=== PATIENT | female | born 1950 | race Caucasian/White ===

== ENCOUNTER 2021-02-27 16:15 | Inpatient (IN) | payer MEDICARE, BC ==
[~2021-02-27] VITALS: Ht 175.3 cm; Wt 139.2 kg
[2021-02-27] MEDS ORDERED: METOPROLOL SUC100 MG PO (16:50)
[2021-02-27] MEDS ORDERED: FELODIPINE ER10 MG PO (16:51)
[2021-02-27] MEDS ORDERED: OMEPRAZOLE20 MG PO (16:51)
[2021-02-27] MEDS ORDERED: ATORVASTATIN CA40 MG PO (16:51)
[2021-02-27] MEDS ORDERED: LISINOPRIL40 MG PO (16:52)
[2021-02-27] MEDS ORDERED: LEVOTHYROXINE75 MCG PO (16:52)
[2021-02-27] MEDS ORDERED: GLIMEPIRIDE4 MG PO (16:52)
[2021-02-27] MEDS ORDERED: HYDROCHLOROTHIA25 MG PO (16:53)
[2021-02-27] MEDS ORDERED: MAGNESIUM400 M1 PO (16:54)
[2021-02-27] MEDS ORDERED: FISH OIL PO (16:54)
[2021-02-27] MEDS ORDERED: GABAPENTIN300 MG PO (16:54)
--- NOTE | 2021-02-27 21:46 | NUR ---
PT ARRIVES TO THE FLOOR VIA STRETCHER WITH PRESENT. ADMISSION PROCESS COMPLETE. PT ORIENTED TO ROOM, POC FOR THIS SHIFT, CALL LIGHT USE. PT AND DENY QUESTIONS. JELLO AND BROTH PROVIDED. FURTHER NEEDS DENIED AT THIS TIME. CALL LIGHT IN REACH.
--- NOTE | 2021-02-27 22:14 | NUR ---
ADMISSION ASSESSMENT COMPLETE. PT ALERT AND ORIENTED X 4. SPOUSE AT BEDSIDE. PT REPORTS PAIN IS TOLERABLE 3/10. DOES REPORT INTERMITTENT NAUSEA. DENIES PRN FOR N/V OR PAIN AT THIS TIME. IVF INFUSING WNL. CLEAR LIQUIDS AT BEDSIDE. PT DENIES QUESTIONS OR CONCERNS AT THIS TIME. CALL LIGHT IN REACH.
--- NOTE | 2021-02-28 00:10 | NUR ---
IN TO ROUND ON PT. PT REPORTS NAUSEA AND ABD PAIN. PRN FOR N/V AND PAIN ADMINISTERED PER EMAR. SBA TO BR TO VOID. GAIT STEADY. BACK TO BED, STACIE WELL. COOL WASHCLOTH PROVIDED. PT NPO AT THIS TIME AND VERBALIZES UNDERSTANDING OF NPO STATUS. DENIES FURTHER NEEDS. CALL LIGHT IN REACH.
--- NOTE | 2021-02-28 02:31 | NUR ---
CALL LIGHT ANSWERED. PT UP TO BR WITH SBA TO VOID. GAIT STEADY. BACK TO BED, STACIE WELL. REPORTS PAIN AND NAUSEA ARE TOLERABLE AT THIS TIME. DENIES PRN FOR PAIN OR N/V. NO FURTHER NEEDS. CALL LIGHT IN REACH.
--- NOTE | 2021-02-28 02:50 | NUR ---
BLOOD PRESSURE REASSESSED PER PT REQUEST. PT REPORTS ABD PAIN 01/21. IV PRN FOR PAIN ADMINISTERED ORDERED. PT REPORTS MILD NAUSEA WITH PRN ADMINISTRATION THAT QUICKLY PASSESS. COOL WASHCLOTH PROVIDED. HOB ELEVATED. PT WITHOUT FURTHER NEEDS. CALL LIGHT IN REACH.
--- NOTE | 2021-02-28 05:21 | NUR ---
CALL LIGHT ANSWERED. PT UP TO BR SBA TO VOID. GAIT STEADY. BACK TO BED, STACIE WELL. REPORTS PAIN IS "CLIMBING UP THERE". PRN FOR PAIN ADMINISTERED PER EMAR.
--- NOTE | 2021-02-28 07:01 | NUR ---
PT UP TO BR WITH SBA TO VOID. SURGICAL WIPE DOWN COMPLETE. CLEAN LINENS AND GOWN PROVIDED. BACK TO BED, STACIE FAIR. PT REPORTS INCREASED PAIN WITH ACTIVITY. IV PRN FOR PAIN ADMINISTERED DILUTED IN 20 ML NS AND INFUSED OVER THREE MINUTES. PT DENIES NAUSEA. NO FURTHER NEEDS AT THIS TIME. CALL LIGHT IN REACH.
--- NOTE | 2021-02-28 07:51 | CONS ---
[facility] [address], [place] [address] Signed DATE OF CONSULTATION: 02/28/2021 CHIEF COMPLAINT: Right lower quadrant abdominal pain. HISTORY OF PRESENT ILLNESS: Frida is a 70-year-old obese diabetic female, who presents with right lower quadrant abdominal pain. It started around 11:00 am. She had nausea. She came to emergency room for evaluation. In the emergency room, she was tender in the right lower quadrant. White count was elevated. CT scan confirmed her appendicitis. She has been admitted overnight, started on IV fluids and antibiotics. She has done well overnight. PAST MEDICAL HISTORY: 1. Diverticulosis. 2. Hypertension. 3. Diabetes. 4. Pinched nerve in her neck. 5. Cholelithiasis. 6. Obesity. PAST SURGICAL HISTORY: Includes left shoulder surgery without metal, full hysterectomy, bilateral total knee replacements, L4, L5 surgery with metal and ventral hernia repair with mesh with Dr. Amanda. SOCIAL HISTORY: She does not smoke or drink. She is to [place] at [phone]. She has 4 children. She is retired from our local [employer]. Dr. Laurie Geller is her primary care provider. FAMILY HISTORY: She told me there are no major issues in the family. REVIEW OF SYSTEMS: She had 10 systems reviewed and the pertinent positives are included in the above. ALLERGIES: None. MEDICATIONS: 1. Metoprolol 150 mg p.o. daily. 2. Lisinopril 40 mg p.o. daily. 3. Atorvastatin. Electronically Signed By: AYLA JOSE MD 02/28/21 0751 PATIENT NAME: YOLANDA VALVERDE CONSULTATION DATE OF : 52 REPORT #: [id number] PHYSICIAN: AYLA JOSE MD PCP: LAURIE GELLER MD REPORT IS CONFIDENTIAL AND NOT TO BE RELEASED WITHOUT AUTHORIZATION [facility] [address] [place] [id number] Signed 4. Levothyroxine. 5. Felodipine 10 mg p.o. daily. 6. Hydrochlorothiazide. 7. Gabapentin. 8. Omeprazole. 9. Magnesium oxide. 10. Fish oil. 11. Glimepiride. PHYSICAL EXAMINATION: VITAL SIGNS: Blood pressure is 162/54, heart rate 56, respiratory rate 18, temperature is 98.2. She is 98% on room air. She is 5 feet 9 inches at 132 kg. GENERAL: Frida is a 70-year-old female lying supine in her hospital bed. She does not appear systemically ill or toxic. She is very pleasant and a good historian. LUNGS: Clear to auscultation bilaterally. HEART: Regular rate and rhythm. ABDOMEN: Obese, but soft, tender in the right lower quadrant. She has a previous lower midline infraumbilical incision. LABORATORY DATA: Her white blood count 13.8, hemoglobin 13, neutrophils 84. Electrolytes unremarkable. COVID negative. Liver function tests negative. Albumin is 4.2. Urinalysis showed some glucose. RADIOGRAPHIC STUDIES: CT scan of the abdomen and pelvis is reviewed. Unfortunately, we cannot see the actual images due to the computer this morning, but the report is reviewed and she has an appendix measuring 18 mm with mild inflammatory changes, no abscess. ASSESSMENT AND PLAN: Frida is a 70-year-old obese diabetic female, who presents with acute appendicitis. I gave her a brochure on appendicitis. We have reviewed the location and function of the appendix. We have reviewed laparoscopic versus open appendectomy. We will see how that goes given the fact she has mesh from a previous hysterectomy incision. She understands there is risk of surgery including, but not limited to bleeding, infection, scarring, change in contour of the skin, damage to bowel, appendiceal stump leak, postoperative intra-abdominal abscess, incisional hernias and other unforeseen comorbidities. She understands expected intraop and postop course. She has expressed understanding and would like to proceed. Ayla Jose MD Electronically Signed By: AYLA JOSE MD 02/28/21 0751 PATIENT NAME: YOLANDA VALVERDE CONSULTATION DATE OF : 52 REPORT #: [id number] PHYSICIAN: AYLA JOSE MD PCP: LAURIE GELLER MD REPORT IS CONFIDENTIAL AND NOT TO BE RELEASED WITHOUT AUTHORIZATION [facility] [address] [place] [address] Signed STONE/TARAHL /[id number] cc: MD Laurie Mcconnell MD Copies: AYLA JOSE MD, KEVIN R MD ~ Electronically Signed By: AYLA JOSE MD 02/28/21 0751 PATIENT NAME: YOLANDA VALVERDE CONSULTATION DATE OF : 52 REPORT #: [id number] PHYSICIAN: AYLA JOSE MD PCP: LAURIE GELLER MD REPORT IS CONFIDENTIAL AND NOT TO BE RELEASED WITHOUT AUTHORIZATION
--- NOTE | 2021-02-28 09:13 | NUR ---
Patient left unit for surgery.
--- NOTE | 2021-02-28 11:05 | NUR ---
02/28/21 1105 Meenakshi Herrera 1059- PT ARRIVES TO PACU NONAROUSABLE TO NOXIOUS STIMULI WITH AN OPA IN PLACE. PT OBSTRUCTING. JAW THRUST PERFORMED AND THIS CLEARS THE AIRWAY. RESP EVEN AND UNLABORED. OXYGEN SAT LOW 90'S ON 10L VIA MASK. 1103- CBG [id number]
--- NOTE | 2021-02-28 11:37 | NUR ---
THIS MORNING BEFORE PATIENT WENT TO SURGERY THIS MORNING SHE WASHED HER FACE AND BRUSHED HER TEETH AND USED THE MOUTH WASH. SHE SAID THANK YOU.
--- NOTE | 2021-02-28 11:57 | NUR ---
Patient back to floor from surgery. Patient awake, alert and oriented x4. Patient reports her pain has improved and no nausea. Vital signs stable, afebrile. Patient's at bedside. Patient has no current needs. Lunch ordered.
--- NOTE | 2021-02-28 12:32 | NUR ---
STATES PAIN IS MINIMAL AT THIS TIME. VITALS WNL. LAP SITES CLEAN, DRY AND INTACT.
--- NOTE | 2021-02-28 12:50 | OR ---
[facility] [address] [place], [place] [address] Signed DATE OF OPERATION: 02/28/2021 SURGEON: Ayla Jose MD PREOPERATIVE DIAGNOSIS: Acute appendicitis. POSTOPERATIVE DIAGNOSIS: Acute suppurative necrotic appendicitis. PROCEDURE: Laparoscopic appendectomy (prolonged and difficult at 1 hour and 20 minutes). ESTIMATED BLOOD LOSS: None. FINDINGS: Yolanda had suppurative necrotic appendix. It was adherent posteriorly and had to be very carefully and slowly removed from the retroperitoneum. Because of previous abdominal surgery, we could not move the small bowel out of the way and we had to place gauze to keep the small bowel away from our cautery during the dissection. It was a very difficult dissection and took more than double the length of time of a usual appendectomy. In this way, her procedure was prolonged and difficult. INDICATIONS: Frida is a 70-year-old obese diabetic female, who developed right lower quadrant abdominal pain in the morning. She had come to the emergency room. She had nausea and anorexia. She was tender in the right lower quadrant with an elevated white blood cell count. CT scan of the abdomen and pelvis showed her thickened appendix at 18 mm in diameter. There was mild periappendiceal inflammation. I had been asked to admit her overnight as a general surgeon on-call. She had received antibiotics and IV fluids and pain control. I met with Lucita this morning. We reviewed the above findings in detail. She understands the location of function of the appendix. We had discussed laparoscopic versus open appendectomy. She has a previous lower midline infraumbilical incision for her hysterectomy. She had a hernia repaired with mesh previously. We also reviewed the expected intraop and postop course. There is risk including, but not limited to bleeding, infection, scarring, change in contour of the skin, damage to bowel, appendiceal stump leak, postoperative intraabdominal abscess, incisional hernias and other unforeseen comorbidities. She had expressed understanding and wished to proceed. Electronically Signed By: AYLA JOSE MD 02/28/21 1250 PATIENT NAME: YOLANDA VALVERDE OPERATIVE REPORT DATE OF : 52 REPORT #: [id number] PHYSICIAN: AYLA JOSE MD PCP: LAURIE FRANKEL MD REPORT IS CONFIDENTIAL AND NOT TO BE RELEASED WITHOUT AUTHORIZATION [facility] [address] [place], [place] [address] Signed PROCEDURE NOTE: Frida was taken in the operating room and placed in supine position under general endotracheal tube anesthesia. A Grady catheter was inserted with return of clear yellow urine. She was on preoperative antibiotics and SCDs were utilized. She was prepped and draped in usual sterile fashion. All trocars were placed in usual positions under direct visualization of camera without difficulty. We placed our initial trocar above the umbilicus in the midline and above the previous hernia repair. Sure enough, she had omentum and bowel adherent to the previous midline below the umbilicus. We were able to place our suprapubic port under direct visualization just below this area. We had taken multiple pictures throughout for photodocumentation. We found that the proximal 1/3rd and midportion of the appendix was adherent to the retroperitoneum. It took a few minutes to free that up enough that we could separate the base of the appendix from the cecum. We used a linear stapler to divide the appendix from the base of the cecum. There was good hemostasis. Because of the inflammatory changes in the mesoappendix, we could never get that to come up completely. We had to place gauze into the abdomen and push the small bowel away from the area we are dissecting because of the previous adhesions to her lower midline. We then very slowly and carefully cauterized the mesoappendix right along the edge of the appendix itself. We did encounter appendiceal artery, and we cauterized that very slowly and thoroughly. Again, we kept the retroperitoneum under direct visualization and kept in the surgical plane. Eventually, we had the appendix free. We placed the appendix into an EndoCatch bag. We removed the gauze through our trocar site. The appendix had been removed with the help of the EndoCatch bag. We used our laparoscopic suturing device to pass 0-Vicryl suture on either side of the right subcostal trocar site. Two stitches were then placed in this area. We then closed the fascia of the supraumbilical midline trocar site with interrupted [id number] and simple 0-Vicryl sutures. Local anesthetic was injected into all trocar sites. The skin and dermis of each trocar site were closed with interrupted 3-0 subcuticular Monocryl sutures. We did use 5-0 fast absorbing plain gut suture to close the skin on the suprapubic site. After this, dry gauze and tape were applied. Her Grady catheter was removed without difficulty. She was awakened from anesthesia, extubated in the OR, and taken to the recovery room in stable condition. Ayla Jose MD ALB/MODL /[id number] Electronically Signed By: AYLA JOSE MD 02/28/21 1250 PATIENT NAME: YOLANDA VALVERDE OPERATIVE REPORT DATE OF : 52 REPORT #: [id number] PHYSICIAN: AYLA JOSE MD PCP: LAURIE FRANKEL MD REPORT IS CONFIDENTIAL AND NOT TO BE RELEASED WITHOUT AUTHORIZATION [facility] [address] [place], [place] [address] Signed cc: MD Ayla Martínez MD Copies: LAURIE FRANKEL MD, ANDREW L MD ~ Electronically Signed By: AYLA JOSE MD 02/28/21 1250 PATIENT NAME: YOLANDA VALVERDE OPERATIVE REPORT DATE OF : 52 REPORT #: [id number] PHYSICIAN: AYLA JOSE MD PCP: LAURIE FRANKEL MD REPORT IS CONFIDENTIAL AND NOT TO BE RELEASED WITHOUT AUTHORIZATION
--- NOTE | 2021-02-28 12:59 | NUR ---
Patient sitting up eating lunch; a&ox4. Patient reports she is doing well at this time with minimal abd pain. Patient denies nausea. remains at bedside. Abdominal x3 lap sites are unchanged; covered/CDI. Patient has no needs. Personal supplies and call light within reach.
--- NOTE | 2021-02-28 13:43 | NUR ---
Continues to deny pain at this time. Vitals WNL. IV fluids infusing. Lap site dressings remain clean, dry and intact.
--- NOTE | 2021-02-28 13:54 | NUR ---
Patient continuing to do well, a&ox4. Patient denies pain at this time. Vital signs are stable. Abd incisions are unchanged; covered lap sites x3-CDI. Patient has no current needs. Personal supplies and call light within reach.
--- NOTE | 2021-02-28 15:16 | NUR ---
SHE CALLED SHE NEEDED TO USE THE BATHROOM. SO I UNHOOKED HER SCDS AND UNPLUGED THE IV FROM THE WALL. HER IS IN THE ROOM. SHE ALSO WANTED A CUP OF ICE WATER AND A CUP OF ICE SO I WENT AND GOT THAT FOR HER. PATIENT BACK IN BED.
--- NOTE | 2021-02-28 16:12 | NUR ---
New order obtained from Dr. King for continuous lactated ringers @85 ml/hr.
--- NOTE | 2021-02-28 16:26 | NUR ---
[place] 10/325mg po admin for reports of 6/10 abd pain.
--- NOTE | 2021-02-28 19:15 | NUR ---
REPORT RECEIVED FROM DAY SHIFT RN. PT LYING IN BED ALERT AND ORIENTED. DENIES NEEDS AT THIS TIME. CALL LIGHT IN REACH. WHITE BOARD UPDATED.
--- NOTE | 2021-02-28 20:37 | NUR ---
COLOR DIPPER ROUNDING NOTE. PT RESTING IN BED, AT BEDSIDE. QUESTIONS, CONCERNS, NEEDS DENIED AT THIS TIME. CALL LIGHT IN REACH. WHITEBOARD UPDATED.
--- NOTE | 2021-02-28 20:40 | NUR ---
EVENING ASSESSMENT COMPLETE. SCHEDULED MEDS ADMNISTERED PER EMAR. PRN ADMINISTERED FOR 6/10 ABD PAIN. LAP SITES X 3 COVERED WITH GAUZE. SCANT AMOUNT SEROSANG DRAINAGE. BT ACTIVE. ABD SOFT AND NON DISTENDED. UP TO BR WITH SBA TO VOID. GAIT STEADY. BACK TO BED, STACIE WELL. FRESH ICE TO INCISIONS. SCD'S IN PLACE. PT DENIES QUESTIONS OR CONCERNS. CALL LIGHT IN REACH.
--- NOTE | 2021-02-28 22:15 | NUR ---
CALL LIGHT ANSWERED. 1 SBA TO THE BATHROOM AND BACK TO BED. ICE WATER REFILLED. PAIN MEDS REQUESTED AND PRIMARY RN NOTIFIED.
--- NOTE | 2021-02-28 22:30 | NUR ---
IV ABX INFUSING WNL ORDERED. PRN ADMINISTERED FOR 6/10 ABD PAIN. PT DENIES FURTHER NEEDS. CALL LIGHT IN REACH.
--- NOTE | 2021-03-01 00:21 | NUR ---
PT REPORTS SHE IS RESTING WELL. PAIN IS TOLERABLE. FRESH ICE FOR INCISIONS. CPOX IN PLACE. SpO2 94% ON RA. HR 50'S.
--- NOTE | 2021-03-01 02:40 | NUR ---
PT UP TO BR WITH SBA TO VOID. GAIT STEADY. BACK TO BED, STACIE WELL. SCD'S AND CPOX IN PLACE. SpO2 95% ON RA. HR 60'S. SCHEDULED BP MEDS ADMINISTERED PER EMAR. PRN FOR PAIN ADMINISTERED FOR 01/21 ABD PAIN. IV ABX INFUSING WNL. FRESH WATER AND ICE FOR ABD PROVIDED. PT DENIES FURTHER NEEDS. CALL LIGHT IN REACH.
--- NOTE | 2021-03-01 05:45 | NUR ---
PT UP TO BR WITH SBA TO VOID. GAIT STEADY. BACK TO BED, STACIE WELL. VS AND I&O COMPLETE. PT REPORTS PAIN IS TOLERABLE AT THIS TIME. DENIES NAUSEA. IVF INFUSING WNL. FRESH ICE PACK TO INCISION. NO FURTHER NEEDS. CALL LIGHT IN REACH.
--- NOTE | 2021-03-01 06:43 | DS ---
[facility] [address] [place], [place] [address] Signed ADMISSION DATE: 02/27/2021 DISCHARGE DATE: 03/01/2021 FINAL DIAGNOSIS: Suppurative necrotic appendicitis. PROCEDURE: Laparoscopic appendectomy. HISTORY OF PRESENT ILLNESS: Frida is a 70-year-old obese diabetic female, who presented with one day of right lower quadrant abdominal pain, nausea and anorexia. She came to the emergency room. She was tender in the right lower quadrant with an elevated white blood cell count. The CT scan showed the dilated appendix at 18 mm with mild periappendiceal inflammation. HOSPITAL COURSE: Lucita was admitted as above and started on Rocephin and Flagyl. She was taken to the operating room that same morning and underwent a prolonged and difficult laparoscopic appendectomy. Her appendix was adherent to the retroperitoneum and it took extra time to get the appendix out. She did very well postoperatively. When she woke up in the recovery room, she felt great. She has been eating and tolerating diet quite nicely. Her pain is controlled with hydrocodone. She cannot take oxycodone. She will not take NSAIDs because of her diabetes. She knows she can supplement with Tylenol. This morning, she asked if she could go home. DISCHARGE PLANS AND MEDICATIONS: Frida will be discharged to home with a prescription for [place] 10/325 one tablet p.o. q.6 hours p.r.n. for severe postoperative pain. Dispense 30 tablets with no refills. She could supplement with [id number] Tylenol. She avoids NSAIDs because of her diabetes. She will resume all her chronic medications. We will give her Levaquin 500 mg p.o. daily for three days. She also has Flagyl 500 mg p.o. t.i.d. for three days. I will see her back in my office in the next week or two for followup. In the meantime, she can perform her activities of daily living including walking up and down stairs and showering and bathing as usual. She should not do any heavy pushing, pulling, or lifting over about 20 pounds. She has expressed understanding and agrees with the above plan. Ayla Jose MD Electronically Signed By: AYLA JOSE MD 03/01/21 0643 PATIENT NAME: YOLANDA VALVERDE DISCHARGE SUMMARY DATE OF : 52 REPORT #: [id number] PHYSICIAN: AYLA JOSE MD PCP: LAURIE FRANKEL MD REPORT IS CONFIDENTIAL AND NOT TO BE RELEASED WITHOUT AUTHORIZATION [facility] [address] [place] [address] Signed ALB/MODL /[id number] cc: MD Laurie Mcconnell MD Copies: AYLA JOSE MD, KEVIN R MD ~ Electronically Signed By: AYLA JOSE MD 03/01/21 0643 PATIENT NAME: YOLANDA VALVERDE DISCHARGE SUMMARY DATE OF : 52 REPORT #: [id number] PHYSICIAN: AYLA JOSE MD PCP: LAURIE FRANKEL MD REPORT IS CONFIDENTIAL AND NOT TO BE RELEASED WITHOUT AUTHORIZATION
--- NOTE | 2021-03-01 07:29 | EKG ---
[facility] [address] [facility] [place], [place] [address] Signed Normal sinus rhythm Normal ECG No previous ECGs available Confirmed by FAVIAN LAIRD MD ([id number]) on 03/01/2021 7:29:29 AM Electronically Signed By: FAVIAN LAIRD MD 03/01/21 0729 PATIENT NAME: YOLANDA VALVERDE Electrocardiogram DATE OF : 52 PHYSICIAN: FAVIAN LAIRD MD REPORT #: [id number] REPORT IS CONFIDENTIAL AND NOT TO BE RELEASED WITHOUT AUTHORIZATION
--- NOTE | 2021-03-01 07:30 | NUR ---
Patient awake, a&ox4. Patient reports minimal incisional pain. Breakfast ordered. No current needs. Personal supplies and call light within reach.
[2021-03-01] MEDS ORDERED: HYDROCODON-ACE1 EAC8 PO (07:41)
[2021-03-01] MEDS ORDERED: TYLENOL EXTRA500 MG PO (07:42)
[2021-03-01] MEDS ORDERED: LEVOFLOXACIN500 MG PO (07:43)
[2021-03-01] MEDS ORDERED: FLAGYL500 MG PO (07:44)
--- NOTE | 2021-03-01 09:03 | NUR ---
MED REC COMPLETE
--- NOTE | 2021-03-01 09:09 | NUR ---
Admin two tabs [place] 10/325mg po.
== END 2021-03-01 10:35 | disposition home or self-care (01) | DRG 342 ==
LOC: ED 16:15 → MS 16:16 → ED 16:16 → MS 02-28 06:37
PROVIDERS: ADMIT Colon & Rectal Surgery; ATTEND Colon & Rectal Surgery
PROC: 0DTJ4ZZ Resection of Appendix, Percutaneous Endoscopic Approach (ICD-10-PCS; principal; 2021-02-28 09:30)
DX: K35.80 Unspecified acute appendicitis (principal); Z68.42 Body mass index [BMI] 45.0-49.9, adult; Z20.822 Contact with and (suspected) exposure to COVID-19; K57.90 Diverticulosis of intestine, part unspecified, without perforation or abscess without bleeding; I10 Essential (primary) hypertension; E11.9 Type 2 diabetes mellitus without complications; E66.9 Obesity, unspecified; Z79.899 Other long term (current) drug therapy
CPT/HCPCS: 00840; 74177; 80053; 81001; 85025; 88304; 93005; 93010; 96375; 96376; 99285-25; C9113; C9803; G0378; J0692; J0696; J1170; J1650; J1815; J1885; J2250; J2405; J3010; J7030; J7121; Q9967; U0003

== ENCOUNTER 2021-05-10 13:00 | Emergency (ER) | payer MEDICARE, BC ==
[~2021-05-10] VITALS: Ht 175.3 cm; Wt 138.8 kg
[~2021-05-10 13:00] MED LIST: ATORVASTATIN CA40 MG PO; FELODIPINE ER10 MG PO; FISH OIL PO; FLAGYL500 MG PO; GABAPENTIN300 MG PO; GLIMEPIRIDE4 MG PO; HYDROCHLOROTHIA25 MG PO; HYDROCODON-ACE1 EAC8 PO; LEVOFLOXACIN500 MG PO; LEVOTHYROXINE75 MCG PO; LISINOPRIL40 MG PO; MAGNESIUM400 M1 PO; METOPROLOL SUC100 MG PO; OMEPRAZOLE20 MG PO; TYLENOL EXTRA500 MG PO
== END 2021-05-10 18:43 | disposition home or self-care (01) ==
LOC: ED 13:00
DX: U07.1 COVID-19 (principal); I10 Essential (primary) hypertension; E11.9 Type 2 diabetes mellitus without complications; Z79.899 Other long term (current) drug therapy
CPT/HCPCS: 99284-25; M0243; Q0244; U0003

== ENCOUNTER 2022-11-25 21:27 | Emergency (ER) | payer MEDICARE, BC ==
[~2022-11-25] VITALS: Ht 175.3 cm; Wt 138.8 kg
[2022-11-25] MEDS ORDERED: FLONASE ALLERG9.9 ML NAS (22:34)
[2022-11-25 22:41] VITALS: BP 181/57
== END 2022-11-25 22:42 | disposition home or self-care (01) ==
LOC: ED 21:27
DX: J30.9 Allergic rhinitis, unspecified (principal); I10 Essential (primary) hypertension; E11.9 Type 2 diabetes mellitus without complications; Z79.899 Other long term (current) drug therapy
CPT/HCPCS: 99283